=== PATIENT | female | born 1990 | race Caucasian/White ===

== ENCOUNTER 2016-06-17 00:28 | Emergency (ER) | payer SELFPAY ==
[~2016-06-17] VITALS: Ht 157.5 cm; Wt 57.0 kg
[2016-06-17 00:29] VITALS: BP 151/66; PULSE 77; RESP 14; TEMP 98; O2SAT 99
== END 2016-06-17 04:30 | disposition left against medical advice (07) ==
LOC: NED 00:28
DX: F32.9 Major depressive disorder, single episode, unspecified (principal); Z53.21 Procedure and treatment not carried out due to patient leaving prior to being seen by health care provider
CPT/HCPCS: 99281

== ENCOUNTER 2016-06-17 11:03 | Emergency (ER) | payer SELFPAY ==
[~2016-06-17] VITALS: Ht 154.9 cm; Wt 45.0 kg
[2016-06-17 11:15] VITALS: BP 100/59; PULSE 76; RESP 15; TEMP 97.9; O2SAT 98
[2016-06-17 19:04] VITALS: BP 112/68; PULSE 73; RESP 16; TEMP 98.2; O2SAT 99
--- NOTE | 2016-06-17 19:39 | PD ---
HPI Chief Complaint: Psychiatric Symptoms Time Seen by Provider: 19:35 Travel History International Travel<30 days: No Contact w/Intl Traveler<30days: No Traveled to known affect area: No History of Present Illness HPI 25-year-old female that presents to the ED for evaluation of psych. Patient has a chronic history depression and bipolar disorder. Per patient she recently moved here from [place]. Per patient she's been feeling depressed and she's been cutting herself. She hasn't been any medications for a while. She denies any other medical problems. She states that she is to be medications for this. No allergies to medication. No homicidal ideation.No allergies to medication. No drugs or alcohol. PFSH Past Medical History Bipolar Disorder: Yes Depression: Yes ?: Not Social History Alcohol Use: No Tobacco Use: Yes Substance Use: No Allergies-Medications (Allergen,Severity, Reaction): Coded Allergies: No Known Allergies (Unverified , 06/17/16) Reported Meds & Prescriptions Reported Meds & Active Scripts Active No Active Prescriptions or Reported Medications Review of Systems Except as stated in HPI: all other systems reviewed are Neg Physical Exam Narrative GENERAL: SKIN: Warm and dry. HEAD: Atraumatic. Normocephalic. EYES: Pupils equal and round. No scleral icterus. No injection or drainage. ENT: No nasal bleeding or discharge. Mucous membranes pink and moist. NECK: Trachea midline. No JVD. CARDIOVASCULAR: Regular rate and rhythm. No murmurs, S3, S4. RESPIRATORY: No accessory muscle use. Clear to auscultation. Breath sounds equal bilaterally. GASTROINTESTINAL: Abdomen soft, non-tender, nondistended. Hepatic and splenic margins not palpable. MUSCULOSKELETAL: Extremities without clubbing, cyanosis, or edema. No obvious deformities. Full range of motion of the upper and lower extremity is bilaterally. 2+ pulses bilaterally. NEUROLOGICAL: Awake and alert. No obvious cranial nerve deficits. Motor grossly within normal limits. Five out of 5 muscle strength in the arms and legs. Normal speech. PSYCHIATRIC: Appropriate mood and affect; insight and judgment normal. Data Data Last Documented VS Vital Signs Date Time Temp Pulse Resp B/P Pulse Ox O2 Delivery O2 Flow Rate FiO2 06/17/16 19:04 98.2 73 16 112/68 99 Room Air Orders Psych Screen (06/17/16 18:55) Complete Blood Count With Diff (06/17/16 19:03) Comprehensive Metabolic Panel (06/17/16 19:03) Drug Screen, Random Urine (06/17/16 19:03) Alcohol (Ethanol) (06/17/16 19:03) Salicylates (Aspirin) (06/17/16 19:03) Tylenol (Acetaminophen) (06/17/16 19:03) MDM Medical Decision Making Medical Screen Exam Complete: Yes Emergency Medical Condition: Yes Medical Record Reviewed: Yes Differential Diagnosis Depression versus suicidal ideation versus anxiety versus adjustment disorder versus mood disorder versus bipolar disorder versus schizophrenia versus paranoid disorder versus psychosis versus substance abuse versus alcohol abuse versus alcohol induced psychosis versus homicidality addition versus cutting versus personality disorder Narrative Course 25-year-old female that presents to the ED for evaluation of psych. Patient was properly examined and was found to have signs and symptoms consistent with appears to be psychiatric illness. No sign of acute medical distress. Labs were drawn. Patient will be medically clear. Okay to be seen by psych. Mental health screening was discussed with the patient. Diagnosis Primary Impression: Depression Qualified Code: F33.1 - Moderate episode of recurrent major depressive disorder Scripts No Active Prescriptions or Reported Meds Juarez Olguin Jun 17, 2016 19:39
[2016-06-17 21:35] LABS: AUTOMATED NEUTROPHIL # 3.7 TH/MM3 (1.8-7.7); BASOPHIL % 0.4 % (0.0-2.0); EOSINOPHIL # 0.1 TH/MM3 (0-0.4); EOSINOPHIL % 1.4 % (0.0-4.0); HEMATOCRIT 42.9 % (35.0-46.0); HEMO FLAGS DIFF FINAL; LYMPH % 33.7 % (9.0-44.0); LYMPHOCYTE # 2.1 TH/MM3 (1.0-4.8); MEAN CELL VOLUME 86.8 FL (80.0-100.0); MEAN CORPUSCULAR HGB CONC 33.4 % (32.0-36.0); MONO % 6.6 % (0.0-8.0); NEUT % 57.9 % (16.0-70.0); PLATELET COUNT 225 TH/MM3 (150-450); RED BLOOD COUNT 4.94 MIL/MM3 (4.00-5.30); WHITE BLOOD COUNT 6.3 TH/MM3 (4.0-11.0)
[2016-06-17 21:50] LABS: ANION GAP 6 MEQ/L (5-15)
[2016-06-17 21:54] LABS: ALKALINE PHOSPHATASE 80 U/L (45-117); ALT (GPT) 94 U/L (10-53); AST (GOT) 34 U/L (15-37); BICARBONATE 28.3 MEQ/L (21.0-32.0); BLOOD UREA NITROGEN 11 MG/DL (7-18); CHLORIDE 105 MEQ/L (98-107); GLOMERULAR FILTRATION RATE 108 ML/MIN (>89); POTASSIUM 3.9 MEQ/L (3.5-5.1); SODIUM (NA) 139 MEQ/L (136-145)
[2016-06-17 22:17] LABS: AMPHETAMINE, URINE NEG (NEG); BARBITURATES, URINE NEG (NEG); COCAINE, URINE NEG (NEG)
[2016-06-17 22:35] VITALS: BP 100/60; PULSE 76; RESP 19
[2016-06-17 22:39] LABS: ACETAMINOPHEN LESS THAN 2.0 MCG/ML (10.0-30.0)
[2016-06-17 23:37] LABS: BACTERIA, URINE FEW /hpf; BLOOD, URINE NEG (NEG); COMMENT (UR) CULT NOT INDICATED; CULTURE IF INDICATED CULT NOT INDICATED; GLUCOSE,URINE NEG (NEG); KETONE, URINE NEG (NEG); MUCUS URINE FEW /lpf (OCC); SQUAMOUS EPITHELIAL CELL URINE 1 /hpf (0-5); URINE COLOR LIGHT-YELLOW (YELLW/STRAW)
[2016-06-17 23:39] LABS: NITRITE,URINE POS (NEG)
[2016-06-18 02:25] VITALS: BP 142/89; PULSE 90; RESP 16; O2SAT 97
[2016-06-18 06:27] VITALS: BP 99/50; PULSE 70; RESP 19; O2SAT 98
[2016-06-18 12:55] VITALS: BP 95/56; PULSE 78; RESP 16; O2SAT 100
[2016-06-18 15:08] VITALS: BP 102/88; PULSE 68; RESP 20
--- NOTE | 2016-06-18 15:28 | PD ---
History of Present Illness Chief Complaint: Psychiatric Symptoms Time Seen by Provider: 15:00 Travel History International Travel<30 Days: No Contact w/Intl Traveler<30days: No Known affected area: No Legal Status Legal Status: Voluntary History of Present Illness: History of Present Illness 25-year-old female with history of substance use disorder who presents to the ED on a voluntary basis for evaluation. As per report the patient reported feeling suicidal and has been cutting herself. She moved down from [place] yesterday in order to enter a rehabilitation/ sober house. Patient with history of heroin abuse. She presents with positive toxicology for cannabinoids. . No previous contact with [facility] [place], [place]. Patient was monitored in J pod. She is awake, alert and oriented. patient is tearful and wants to be discharged. NO psychosis and no ledy. She reports that she was told by [place] her friend who is helping her get into the sober house " that I was suicidal so that I can stay here for 3 days and then I would go into rehab. I just want to go home". She does report a history of cutting but has not engaged in this behavior recently. Telephone call to patient's friend Rayna informed her that patient was not suicidal and that she does not meet criteria for BA. Telephone call to patient's mother at [phone]. Patient's mother reported that patient is trying to get into a recovery program which has been arranged thru Rayna Bazzi but that she needed to have a clean urine before she was accepted. Mother did not present any concerns other than her substance use. [facility] Past Medical History Bipolar Disorder: Yes Depression: Yes ?: Not Psychiatric History Psychiatric History Hx Psychiatric Treatment: REPORTS A HISTORY OF MAJOR DEPRESSION AND BIPOLAR. WAS ADMITTED AT AGE 17. DOES NOT RECALL WHAT MEDS SHE TOOK. Has not been in tx in many years History of Inpatient Treatment: Yes Guns or firearms in home: No Social History single female. Has 2 children Hx Alcohol Use: No Hx Tobacco Use: Yes Hx Substance Use: Yes (HEROIN 2 MONTHS AGO) Substance Use Type: Heroin Other Substances Used: SUBOXONE. HAS WHAT LOOKS LIKE FAIRLY FRESH TR[employer]ERSON. Hx of Substance Use Treatment: Yes Family Psychiatric History none reported Allergies-Medications (Allergen,Severity, Reaction): Coded Allergies: No Known Allergies (Unverified , 06/17/16) Reported Meds & Prescriptions Reported Meds & Active Scripts Active No Active Prescriptions or Reported Medications Review of Systems Constitutional: COMPLAINS OF: Change in appetite Endocrine: DENIES: Abnorml menstrual pattern, Heat/cold intolerance, Polydipsia , Polyuria, Polyphagia Eyes: DENIES: Blurred vision, Diplopia, Eye inflammation, Eye pain, Vision loss , Photosensitivity, Double Vision Ears, nose, mouth, throat: DENIES: Tinnitus, Hearing loss, Vertigo, Nasal discharge, Oral lesions, Throat pain, Hoarseness, Ear Pain, Running Nose, Epistaxis, Sinus Pain, Toothache, Odynophagia Respiratory: DENIES: Apneas, Cough, Snoring, Wheezing, Hemoptysis, Sputum production, Shortness of breath Cardiovascular: DENIES: Chest pain, Palpitations, Syncope, Dyspnea on Exertion , PND, Lower Extremity Edema, Orthopnea, Claudication Gastrointestinal: DENIES: Abdominal pain, Black stools, Bloody stools, Constipation, Diarrhea, Nausea, Vomiting, Difficulty Swallowing, Anorexia Genitourinary: DENIES: Abnormal vaginal bleeding, Dysmenorrhea, Dyspareunia, Sexual dysfunction, Urinary frequency, Urinary incontinence, Urgency, Hematuria , Dysuria, Nocturia, Vaginal discharge Integumentary: DENIES: Abnormal pigmentation, Pruritus, Rash, Nail changes, Breast masses, Breast skin changes, Nipple discharge Hematologic/lymphatic: DENIES: Bruising, Lymphadenopathy Neurologic: DENIES: Abnormal gait, Headache, Localized weakness, Paresthesias, Seizures, Speech Problems, Tremor, Poor Balance Psychiatric: DENIES: Anxiety, Confusion, Mood changes, Depression, Hallucinations, Agitation, Suicidal Ideation, Homicidal Ideation, Delusions Exam Alert: Yes Bryan: Person (ox4) Mood: Anxious Affect: Other (tearful) Speech: Clear, Logical Eye Contact: Normal Memory Intact: Comment (no impairment) Hallucinations: Other (negative) Delusions: No Suicidal: Ideation (deneis any) Homicidal: Ideation (denies any) Insight/Judgement fair. not impaired MDM Medical Decision Making Medical Record Reviewed: Yes Assessment/Plan 25 year old female with history of substance use disorder who presents to ed for evaluation. Patient admits to having been told by friend that she needed to say she was suicidal so that she could stay in the hospital x 3 days in order to have a negative urine. Patient is not suicidal or homicidal and she has no psychosis or ledy. Patient does not meet criteria for BA and is seeking substance abuse treatment. Orders Psych Screen (06/17/16 18:55) Complete Blood Count With Diff (06/17/16 19:03) Comprehensive Metabolic Panel (06/17/16 19:03) Drug Screen, Random Urine (06/17/16 19:03) Alcohol (Ethanol) (06/17/16 19:03) Salicylates (Aspirin) (06/17/16 19:03) Tylenol (Acetaminophen) (06/17/16 19:03) Urinalysis - C+S If Indicated (06/17/16 21:41) Diet Regular Basic (06/18/16 Breakfast) Diet Regular Basic (06/18/16 Lunch) Results Vital Signs Date Time Temp Pulse Resp B/P Pulse Ox O2 Delivery O2 Flow Rate FiO2 06/18/16 15:08 68 20 102/88 06/18/16 12:55 78 16 95/56 100 Room Air 06/18/16 06:27 70 19 99/50 98 Room Air 06/18/16 02:25 90 16 142/89 97 Room Air 06/17/16 22:35 76 19 100/60 Room Air 06/17/16 19:04 98.2 73 16 112/68 99 Room Air Laboratory Tests Test 06/17/16 06/17/16 20:45 21:22 White Blood Count 6.3 Red Blood Count 4.94 Hemoglobin 14.3 Hematocrit 42.9 Mean Corpuscular Volume 86.8 Mean Corpuscular Hemoglobin 29.0 Mean Corpuscular Hemoglobin 33.4 Concent Red Cell Distribution Width 15.0 Platelet Count 225 Mean Platelet Volume 8.4 Neutrophils (%) (Auto) 57.9 Lymphocytes (%) (Auto) 33.7 Monocytes (%) (Auto) 6.6 Eosinophils (%) (Auto) 1.4 Basophils (%) (Auto) 0.4 Neutrophils # (Auto) 3.7 Lymphocytes # (Auto) 2.1 Monocytes # (Auto) 0.4 Eosinophils # (Auto) 0.1 Basophils # (Auto) 0.0 CBC Comment DIFF FINAL Differential Comment Sodium Level 139 Potassium Level 3.9 Chloride Level 105 Carbon Dioxide Level 28.3 Anion Gap 6 Blood Urea Nitrogen 11 Creatinine 0.67 Estimat Glomerular Filtration 108 Rate Random Glucose 79 Calcium Level 9.1 Total Bilirubin 1.0 Aspartate Amino Transf 34 (AST/SGOT) Alanine Aminotransferase 94 (ALT/SGPT) Alkaline Phosphatase 80 Total Protein 8.5 Albumin 4.2 Salicylates Level 2.9 Acetaminophen Level LESS THAN 2.0 Ethyl Alcohol Level LESS THAN 3 Urine Color LIGHT-YELLOW Urine Turbidity HAZY Urine pH 7.0 Urine Specific [place] 1.007 Urine Protein NEG Urine Glucose (UA) NEG Urine Ketones NEG Urine Occult Blood NEG Urine Nitrite POS Urine Bilirubin NEG Urine Urobilinogen LESS THAN 2.0 Urine Leukocyte Esterase SMALL Urine RBC 1 Urine WBC 1 Urine Squamous Epithelial 1 Cells Urine Amorphous Sediment RARE Urine Bacteria FEW Urine Mucus FEW Microscopic Urinalysis Comment CULT NOT INDICATED Urine Opiates Screen NEG Urine Barbiturates Screen NEG Urine Amphetamines Screen NEG Urine Benzodiazepines Screen NEG Urine Cocaine Screen NEG Urine Cannabinoids Screen POS Diagnosis Primary Impression: Substance abuse Ruled Out: Depression Psychiatrically Cleared: Yes Prescriptions No Active Prescriptions or Reported Meds Disposition: DISCHARGE HOME Condition: Stable HoffmanGraeme lewisvannessa MCMAHON Jun 18, 2016 15:28
== END 2016-06-18 19:29 | disposition home or self-care (01) ==
LOC: NEPJ 11:03
DX: F32.9 Major depressive disorder, single episode, unspecified (principal); F31.9 Bipolar disorder, unspecified; F17.210 Nicotine dependence, cigarettes, uncomplicated
CPT/HCPCS: 80053; 80307; 80320; 80329; 81001; 85025; 99284; G0480